=== PATIENT | female | born 1945 | race Caucasian/White ===

== ENCOUNTER 2025-05-23 14:58 | Outpatient (CLI) | payer MEDICARE, BC, SELFPAY ==
[2025-05-23 15:05] LABS: Microscopic, Urine URINE MICROSCOPIC (MICROSCOPIC)
[2025-05-23 17:51] LABS: Color,Urine YELLOW (Yellow); Glucose,Urine (UA) TRACE (Negative); Ketones,Urine TRACE (Negative); Leukocyte Esterase,Urine Negative (Negative); PH,Urine 5.0 (5.0-8.5); Protein,Urine 1+ (Negative); Urobilinogen,Urine 1.0 EU/dl (0.2)
[2025-05-23 17:58] LABS: Bilirubin,Urine 1+ (Negative)
[2025-05-23 17:59] LABS: Specific Gravity, Urine 1.030 (1.005-1.030)
[2025-05-23 18:05] LABS: Bacteria,Urine 1+ /lpf
== END 2025-05-23 23:59 | disposition home or self-care (01) ==
LOC: LAB 15:00
PROVIDERS: PCP Internal Medicine; Visit Provider Internal Medicine Medical Oncology
DX: C22.9 Malignant neoplasm of liver, not specified as primary or secondary (principal)
CPT/HCPCS: 81001